=== PATIENT | male | born 1980 | race Asian ===

== ENCOUNTER 2019-09-22 08:07 | Outpatient (CLI) | payer BC | END 2019-09-22 20:10 | disposition home or self-care (01) | LOC: RESP 08:07 | DX: I10 Essential (primary) hypertension (principal) | CPT/HCPCS: 93306 ==

== ENCOUNTER 2019-09-27 15:24 | Outpatient (CLI) | payer BC | END 2019-09-27 20:14 | disposition home or self-care (01) | LOC: RESP 15:24 | DX: I49.9 Cardiac arrhythmia, unspecified (principal) | CPT/HCPCS: 93225 ==